=== PATIENT | male | born 1985 | race Caucasian/White ===

== ENCOUNTER 2019-05-16 00:09 | Emergency (ER) | payer OTHER, SELFPAY ==
[2019-05-16 00:10] VITALS: BP 112/67; PULSE 59; RESP 16; TEMP 36.6; O2SAT 98
--- NOTE | 2019-05-16 01:21 | ED.DCSUM_ITS ---
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 Denies: Visual changes - bilaterally, Diplopia Gastrointestinal: Denies: Nausea, Vomiting Skin: Denies: Rash, Wounds Neurological: Denies: Headache, Weakness, Parasthesia Physical Exam Visual Acuity: right: 20/30, left: 20/40 Visual Acuity: Corrected Eyelid: Normal inspection, Right eyelid everted, No foreign body Right Conjunctiva/Sclera: No foreign body, Diffuse focal injection - Mild Left Conjunctiva/Sclera: Normal inspection, No foreign body Right Cornea: Tetracaine instilled, Fluorescein dye uptake, Foreign body Extraocular Motion: Normal exam, No pain, No palsy Pupils: Normal accomodation, PERRL Vital Signs/Narrative: Vital Signs Temp Pulse Resp BP Pulse Ox 05/16/19 00:10 97.9 F 59 L 16 112/67 98 Inital Vital Signs reviewed: Yes General: Well nourished, Well developed - No acute distress Head: Normocephalic, Atraumatic Skin: Normal color, No rash, No Trauma Neurological: Alert, Oriented x3, Cranial nerves II-XII grossly intact, Normal Gait Psychological: Normal affect, Normal Mood Diagnostic/Tx/Re-eval - Treatment and Re-Evaluation Foreign body removal: Cotton tip swab, Eye migue, Irrigation Residual rust ring: Yes Removed with eye migue: No Irrigation: NS Tetracaine: right eye Antibiotic: right eye - Medical Decision Making Attempted for multiple attempts to remove foreign body from the patient's cornea. Despite multiple re-dosing of topical anesthesia, he was unable to keep his eyes still, and the procedure was limited by blepharospasm, as I continue to attempt holding his eye open throughout the procedure. It was extremely difficult. I was able to remove the foreign body, which appeared to be a speck of metal, however after I dislodged it with the eye bur, I was unable to retrieve it with the cotton swab, as the patient continued to move his eye. Therefore I rinsed his eye out, on reexamination there is no evidence of a foreign body but he does have residual rust ring. We attempted trying to grind it out, he was amenable to trying, however he was unable to keep still enough for me to feel comfortable enough to grind it out. I stained with fluorescein, there is dye uptake at the rust ring only and no other areas of dye uptake, negative Maritza. Anterior chamber is deep and quiet. Given erythromycin ointment and advised to follow-up with ophthalmology either tomorrow or on Saturday. Procedures Procedure(s): Right eye foreign body removal. See above. ED Disposition - Plan for ED Patient: Disposition: Home or Assisted Living Diagnosis: Foreign body of right cornea with residual material Instructions: CORNEAL FOREIGN BODY, Removed, w/ Rust Ring Referrals: Damien Kyle MD [STAFF PHYSICIAN] - As soon as possible Additional Instructions: Use thin ribbon topical antibiotic ointment to affected eye, 3 times daily
[2019-05-16] MEDS: Fluorescein 1 MG STRIP 1 STRIP RIGHT EYE (02:44)
[2019-05-16] MEDS: Tetracaine 0.5% Ophthalmic Bottle 2 DRP RIGHT EYE (02:44)
[2019-05-16 02:52] VITALS: BP 117/64; PULSE 59; RESP 18; O2SAT 97
[2019-05-16] MEDS: Erythromycin Base 1 OPTH.TUBE 1 APPLIC RIGHT EYE (02:54)
== END 2019-05-16 02:55 | disposition home or self-care (01) ==
PROVIDERS: Emergency Provider Emergency Medicine
DX: T15.01XA Foreign body in cornea, right eye, initial encounter (principal); S00.251A Superficial foreign body of right eyelid and periocular area, initial encounter; X58.XXXA Exposure to other specified factors, initial encounter; Y93.I9 Activity, other involving external motion; Y92.9 Unspecified place or not applicable; Y99.9 Unspecified external cause status
CPT/HCPCS: 99283; A4216

== ENCOUNTER 2020-05-05 22:58 | Emergency (ER) | payer OTHER, SELFPAY ==
[2020-05-05 22:59] VITALS: BP 120/68; PULSE 88; RESP 16; TEMP 36.2; O2SAT 99; BMI 23.2
--- NOTE | 2020-05-05 23:17 | EKG12_ITS ---
Test Reason : HYPERGLYCEMIA Blood Pressure : / mmHG Vent. Rate : 082 BPM Atrial Rate : 082 BPM P-R Int : 138 ms QRS Dur : 098 ms QT Int : 366 ms P-R-T Axes : 062 085 054 degrees QTc Int : 427 ms Normal sinus rhythm Normal ECG Confirmed by KAYLI REYNA, FREDY ([id number]), food expeditor AQUILINO SANTILLAN ([id number]) on 05/09/2020 8:18:06 AM Referred By: DUGLAS Confirmed By:FREDY MILAN MD
--- NOTE | 2020-05-05 23:17 | RAD_ITS ---
HISTORY: Hyperglycemia, cough, vomiting. EXAMINATION/TECHNIQUE: XR Chest 1 View: Portable COMPARISON: None FINDINGS: Normal heart size. No focal infiltrate. No vascular congestion or pleural effusion. No pneumothorax. RAD/Chest 1 View (Portable) IMPRESSION: No acute cardiopulmonary disease. at 0041 Reported and signed by: Arvind Pollard MD Electronically Signed: Arvind Pollard, at 0:40 EDT Tel , Service support ,
--- NOTE | 2020-05-05 23:21 | ED.RN ---
NO OLD EKGS IN MUSE
[2020-05-05 23:52] LABS: Bacteria 0 SEEN /hpf (None Seen); Mucous, Urine 0 SEEN /hpf (<or=2+); Red Blood Cells-Urine 0 SEEN /hpf (0-5); Squamous Epithelial Cells - UA 0 SEEN /hpf (0-5); White Blood Cells 0 SEEN /hpf (0-5)
[2020-05-05 23:54] LABS: Absolute Lymphocyte Count 0.99 X10^3/uL (0.83-4.51); Absolute Neutrophil Count 12.7 X10^3/uL (2.0-7.7); Basophil# 0.08 X10^3/uL; Basophil% 0.5 % (0-1); Eosinophils% 3.3 % (0-5); Hematocrit 46.1 % (40-54); Lymphocyte # 0.99 X10^3/ul (4.0); Lymphocyte % 6.5 % (19-41); Mean Corp Hgb Conc 32.5 g/dL (32-36); Mean Corpuscular Hgb 29.3 pg (27.0-32.0); Mean Platelet Vol. 9.1 fl (6.2-12.0); Monocyte# 0.79 X10^3/uL; Monocyte% 5.2 % (0-10); NRBC Flagged by Analyzer 0 % (0-5); Neutrophil # 12.74 X10^3/uL (2.7-7.7); Neutrophil % 84.2 % (47-70); Platelet Count 298 K/mm3 (150-450); RBC Distribution Width CV 12.5 % (11.6-14.6); RBC Distribution Width SD 40.9 fl (35.1-43.9); Red Blood Count 5.12 M/mm3 (4.6-6.2); White Blood Count 15.2 K/mm3 (4.4-11.0)
[2020-05-05 23:58] LABS: Glucose, Dipstick Normal (Normal); Ketone-Dipstick Negative (Negative); Leukocyte Esterase-Dipstick Negative /ul (Negative); Nitrite-Dipstick Negative (Negative); Occult Blood-Urine Negative /ul (Negative); Protein-Dipstick 15 mg/dl (Negative); Urine Bilirubin Dipstick Negative (Negative); Urine Urobilinogen Normal (Normal)
[2020-05-05] MEDS: 0.9% Normal Saline 1,000 ML 999 ML IV (23:58)
[2020-05-06 00:03] LABS: Color, Urine Yellow (Yellow); Urine Clarity Clear (Clear)
[2020-05-06 00:06] LABS: Bedside Glucose 178 mg/dL (70-110)
[2020-05-06 00:20] LABS: VBG BASE EXCESS 2 mmol/L (-1.0-3.5); VBG Bicarbonate 28 mmol/L (22-26); VBG Oxygen Content 30 mmol/L (23-33); VBG PO2 30 mmHg (25-40); VBG SO2 52 % (50-70); VBG pCO2 51.3 mmHg (41-51); VBG pH 7.35 (7.32-7.42)
[2020-05-06 00:25] LABS: Blood Gas Specimen Type VEN; SITE VENOUS; Time Given 4
--- NOTE | 2020-05-06 00:32 | ED.DCSUM_ITS ---
History of Present Illness Chief Complaint: Hyperglycemia Informant: Patient Narrative: 34-year-old male with type 1 diabetes presents with concern for upper respiratory symptoms as well as difficulty controlling his sugar. States over the past 2 days he has had upper nasal drainage as well as sore throat. States that over the course of today's sugar is been high and low. States he gave himself a dose of glucagon given a low blood sugar of approximately 60 before arrival. States that his is currently on quarantine for cough from the hospital. He denies any fever, chills, cough, nausea, vomiting, abdominal pain. Past Medical History - Allergies and Home Meds Allergies/Adverse Reactions: Allergies codeine Allergy (Verified 05/16/19 00:28) Rash acetaminophen [From Percocet] Adverse Reaction (Verified 05/05/20 23:01) Vomiting oxycodone [From Percocet] Adverse Reaction (Verified 05/05/20 23:01) Vomiting Sulfa (Sulfonamide Antibiotics) Adverse Reaction (Verified 05/05/20 23:01) Vomiting Primary Care Physician: Nilsa Hale MD [Primary Care Provider] - Prior records reviewed: Yes Past Medical History: - - DM 1 Surgical History: no surgical history Lives: Spouse/ Significant Other Smoking Status: Former smoker Alcohol: None Drugs: None Review of Systems General: Reports: Malaise. Denies: Chills, Fever, Sweats Eyes: Denies: Visual changes - bilaterally, Diplopia ENT: Reports: Sore throat. Denies: Rhinorrhea Cardiovascular: Denies: Chest pain, Palpitations Respiratory: Denies: Dyspnea, Cough, Dyspnea on exertion Gastrointestinal: Denies: Abdominal pain, Nausea, Vomiting, Diarrhea, Melena, Hematochezia Genitourinary: Denies: Dysuria, Hematuria, Frequency Musculoskeletal: Denies: Back pain, Extremity Pain Skin: Denies: Rash, Wounds Neurological: Denies: Headache, Weakness, Numbness Physical Exam Vital Signs/Narrative: Vital Signs Temp Pulse Resp BP Pulse Ox 05/05/20 22:59 97.1 F L 88 16 120/68 99 Inital Vital Signs reviewed: Yes General: Well nourished, Well developed, No Acute Distress Head: Normocephalic, Atraumatic Eyes: Perrl, EOMI ENT: Moist mucous membranes, No rhinorrhea Neck: Supple, Nontender Cardiovascular: Regular rate, Regular rhythm, No murmurs Respiratory: No distress, CTA bilaterally, Chest nontender Abdomen: Soft, Nontender, Nondistended, Normal bowel sounds Back: Nontender, Normal Inspection Extremities: Nontender, No edema Skin: Normal color, No rash Neurological: Alert, Oriented x3, Cranial nerves II-XII grossly intact, Normal Strength, Normal Sensation Psychological: Normal affect, Normal Mood Diagnostic/Tx/Re-eval Chest X-Ray - ED: 1 View, Read by ED Physician, Normal Clinical Impression(s) from Imaging Studies Chest X-Ray 05/05/20 23:17 IMPRESSION: No acute cardiopulmonary disease. at 0041 Reported and signed by: Arvind Pollard MD Electronically Signed: Arvind Pollard, at 0:40 EDT Tel , Service support , Laboratory Data 05/05/20 05/05/20 05/05/20 23:35 23:35 23:35 WBC 15.2 H RBC 5.12 Hgb 15.0 Hct 46.1 MCV 90.0 MCH 29.3 MCHC 32.5 RDW Std Deviation 40.9 RDW Coeff of Ashleigh 12.5 Plt Count 298 MPV 9.1 Immature Gran % (Auto) 0.300 Neut % (Auto) 84.2 H Lymph % (Auto) 6.5 L Dolores % (Auto) 5.2 Eos % (Auto) 3.3 Baso % (Auto) 0.5 Absolute Neuts (auto) 12.7 H Absolute Lymphs (auto) 0.99 Nucleated RBC % 0 Specimen Type Sample Site VBG pH VBG pO2 VBG O2 Sat (Calc) VBG O2 Content VBG Base Excess POC Mix VBG pCO2 Pt Tmp Blood Gas Notified Whom Blood Gas Notified Time Sodium 141 Potassium 3.4 L Chloride 104 Carbon Dioxide 32.0 Anion Gap 5 BUN 16 Creatinine 1.01 Estim Creat Clear Calc 114.18 Est GFR (MDRD) Af Amer 109 Est GFR (MDRD) Non-Af 90 BUN/Creatinine Ratio 15.8 Glucose 138 H Calcium 8.9 Phosphorus 3.9 Magnesium 2.0 Urine Color Urine Clarity Urine pH Ur Specific [place] Urine Protein Urine Glucose (UA) Urine Ketones Urine Occult Blood Urine Nitrite Urine Bilirubin Urine Urobilinogen Ur Leukocyte Esterase Urine RBC Urine WBC Ur Squamous Epith Cells Urine Bacteria Urine Mucus Acetone Level NEGATIVE POC Glucose 05/05/20 05/05/20 05/06/20 23:45 23:51 00:04 WBC RBC Hgb Hct MCV MCH MCHC RDW Std Deviation RDW Coeff of Ashleigh Plt Count MPV Immature Gran % (Auto) Neut % (Auto) Lymph % (Auto) Dolores % (Auto) Eos % (Auto) Baso % (Auto) Absolute Neuts (auto) Absolute Lymphs (auto) Nucleated RBC % Specimen Type LENO Sample Site VENOUS VBG pH 7.35 VBG pO2 30 VBG O2 Sat (Calc) 52 VBG O2 Content 30 VBG Base Excess 2 POC Mix VBG pCO2 Pt Tmp 51.3 H Blood Gas Notified Whom ED MD Blood Gas Notified Time 4 Sodium Potassium Chloride Carbon Dioxide Anion Gap BUN Creatinine Estim Creat Clear Calc Est GFR (MDRD) Af Amer Est GFR (MDRD) Non-Af BUN/Creatinine Ratio Glucose Calcium Phosphorus Magnesium Urine Color Yellow Urine Clarity Clear Urine pH 8.0 Ur Specific [place] 1.010 Urine Protein 15 H Urine Glucose (UA) Normal Urine Ketones Negative Urine Occult Blood Negative Urine Nitrite Negative Urine Bilirubin Negative Urine Urobilinogen Normal Ur Leukocyte Esterase Negative Urine RBC 0 SEEN Urine WBC 0 SEEN Ur Squamous Epith Cells 0 SEEN Urine Bacteria 0 SEEN Urine Mucus 0 SEEN Acetone Level POC Glucose 178 H - Rhythm Strip Rhythm Strip: Sinus Rhythm Rate: 82 Ectopy: None - EKG Initial EKG Interpretation: Sinus Rhythm - Sinus rhythm at 82 bpm. AK interval 138 ms. QTC of 427 ms. No evidence of ST elevation or depression at this time. - Medical Decision Making Patient appears well and nontoxic. Vital signs within normal limits. Fingerstick glucose of 178. BG shows no acidosis. Acetone negative. Glucose only mildly elevated on BMP. Patient does have a leukocytosis. Chest x-ray negative. Coronavirus pending. Patient likely has a viral illness and was advised to quarantine until the results of his testing could be returned. On reevaluation at 0126 patient's current blood sugar is 220 based upon his monitor. Patient is mentating well. Advised on quarantining at home. Asked to return for new or worsening symptoms. Patient agreeable and discharged home in stable condition. ED Disposition - Plan for ED Patient: Disposition: Home or Assisted Living Diagnosis: URI (upper respiratory infection), Uncontrolled blood glucose Instructions: ED URI Viral Referrals: Nilsa Hale MD [Primary Care Provider] -
[2020-05-06 01:18] LABS: Anion Gap 5 (5-15); BUN 16 mg/dL (7-18); BUN/Creat Ratio 15.8 RATIO (10-20); Calcium,Total 8.9 mg/dL (8.5-10.1); Chloride 104 mmol/L (98-107); Creatinine, Serum 1.01 mg/dL (0.70-1.30); EST Glomerular Filtration Rate 90 mL/min (>60); Est Glom Filt Rate - Afr Amer 109 mL/min (>60); Estimated Creatinine Clearance 114.18 ml/min; Glucose 138 mg/dL (74-106); Phosphorus 3.9 mg/dL (2.5-4.9); Potassium 3.4 mmol/L (3.5-5.1); Sodium Level 141 mmol/L (136-145)
[2020-05-06 02:03] VITALS: BP 121/71; PULSE 68; RESP 11; O2SAT 97
== END 2020-05-06 02:05 | disposition home or self-care (01) ==
PROVIDERS: Emergency Provider Emergency Medicine; PCP Family Medicine
DX: J06.9 Acute upper respiratory infection, unspecified (principal); Z79.4 Long term (current) use of insulin; Z87.891 Personal history of nicotine dependence; Z88.2 Allergy status to sulfonamides; Z88.5 Allergy status to narcotic agent
CPT/HCPCS: 71045; 80048; 81001; 82009; 82803; 82962; 83735; 84100; 85025; 87635; 93005; 96360; 99283; G2023; J7030; A4216; U0003

== ENCOUNTER → 2020-10-10 15:31 | Outpatient (CLI) | payer OTHER, SELFPAY ==
[2020-10-10 13:38] VITALS: BMI 23.1
== END ==
PROVIDERS: Physician Assistant; PCP Family Medicine; Referring Provider Physician Assistant Surgical; Visit Provider Physician Assistant Surgical
DX: R09.89 Other specified symptoms and signs involving the circulatory and respiratory systems (principal)
CPT/HCPCS: 87635; U0003

== ENCOUNTER 2020-10-12 20:05 | Emergency (ER) | payer OTHER, SELFPAY ==
[2020-10-10 13:38] VITALS: BMI 23.1
[2020-10-12 20:06] VITALS: BP 134/81; PULSE 74; RESP 16; TEMP 36.6; O2SAT 100; BMI 23.4
--- NOTE | 2020-10-12 20:26 | ED.VISSUMM ---
- ER Visit Summary Date of Service: 10/12/20 Chief Complaint: Shortness of breath History of Present Illness: The patient is a 35 M who presents with shortness of breath that has been getting worse over the past 4 days. Patient states it feels like it is hard to breathe. Patient states he was recently exposed to a coworker who was diagnosed with COVID-19. Patient states he had a rapid antigen COVID-19 test 5 days ago which was negative. Patient states he had a PCR test done 2 days ago and is still pending. Patient states his breathing is worse with any exertion. Patient states he is diabetic and his blood sugars have been getting more difficult to manage. Patient admits to a fever of 100.7 at home. Patient also admits to some bilateral ear pain and a sore throat. Patient also admits to some urinary frequency. Patient admits to general myalgias Physical Examination: Vital signs are stable. Patient is afebrile. Patient is in no acute distress. Oral mucosa is pink and moist. Neck is supple. Trachea is midline. There is no JVD noted. Heart was regular rate and rhythm. Lungs are clear and equal bilaterally. Abdomen is soft. Bowel sounds are normal. There is no tenderness. There is no rebound or guarding noted. Skin is warm dry. Cranial nerves II through XII are intact. There are no focal motor or sensory deficits noted. Extremities are intact. There is no calf tenderness or edema. Test Results: CBC and comprehensive metabolic profile were obtained and were essentially within normal limits. Glucose was 257. Urinalysis does not show any evidence of urinary tract infection. Serum ketones were negative. Portable 1 view chest x-ray was obtained. On my interpretation, lung mike are clear. There is normal cardiac silhouette. Bony thorax is normal. There is no acute process noted. Radiologist also interpreted the x-ray and agrees. Emergency Department Course and Treatment: Patient was advised of his findings. Patient was instructed to follow-up with his primary care physician in 2 to 3 days for results of his COVID-19 test. Patient was instructed to return if worse in any way. Patient understood and was agreeable with the plan. All questions were answered. Disposition: Discharge home Impression: Viral upper respiratory infection This note was generated with [employer] dictation software. It may contain incorrect words, spelling, and punctuation that were not noted in review of the chart prior to signing ED Disposition - Plan for ED Patient: Disposition: Home or Assisted Living Diagnosis: Viral upper respiratory infection Instructions: Pending Outpatient COVID Test, ED URI, Viral, No Abx (Adult) Referrals: Nilsa Hale MD [Primary Care Provider] - 2 Days
--- NOTE | 2020-10-12 20:27 | RAD_ITS ---
STUDY: X-RAY CHEST REASON FOR EXAM: Male, 35 years old. SOB, DIZZINESS TECHNIQUE: Single AP portable view of the chest. COMPARISON: May 05, 2020 FINDINGS: The lungs are clear and expanded. There is no demonstrated pleural abnormality. Normal size heart. Normal mediastinum and timbo. Normal visualized pulmonary arteries. Normal visualized aortic arch and descending thoracic aorta. Normal visualized thoracic spine. Normal visualized ribs, clavicles, and shoulders. There is no demonstrated abnormality of the visualized soft tissue structures of the upper abdomen. RAD/Chest 1 View (Portable) IMPRESSION: Normal x-ray examination of the chest. Electronically Signed: Adam Isaac MD at 21:35 EST , Service support ,
[2020-10-12 21:00] VITALS: BP 115/74; PULSE 67; RESP 18; TEMP 36.6; O2SAT 98
[2020-10-12 21:12] VITALS: O2SAT 98
[2020-10-12 21:20] LABS: Bedside Glucose 271 mg/dL (70-110)
[2020-10-12 21:26] LABS: Absolute Lymphocyte Count 1.77 X10^3/uL (0.83-4.51); Absolute Neutrophil Count 3.6 X10^3/uL (2.0-7.7); Basophil# 0.04 X10^3/uL; Basophil% 0.6 % (0-1); Hematocrit 40.9 % (40-54); Hemoglobin 13.4 g/dL (13.0-16.5); Lymphocyte # 1.77 X10^3/ul (4.0); Lymphocyte % 28.4 % (19-41); Mean Corp Hgb Conc 32.8 g/dL (32-36); Mean Corpuscular Hgb 29.1 pg (27.0-32.0); Mean Corpuscular Volume 88.7 fL (80-94); Mean Platelet Vol. 9.5 fl (6.2-12.0); Monocyte% 4.8 % (0-10); NRBC Flagged by Analyzer 0 % (0-5); Neutrophil # 3.61 X10^3/uL (2.7-7.7); Platelet Count 257 K/mm3 (150-450); RBC Distribution Width CV 12.5 % (11.6-14.6); RBC Distribution Width SD 40.9 fl (35.1-43.9); Red Blood Count 4.61 M/mm3 (4.6-6.2); White Blood Count 6.2 K/mm3 (4.4-11.0)
[2020-10-12 21:42] LABS: ALB/GLOB Ratio 1.2 RATIO (0.9-2.4); AST(SGOT) 12 U/L (15-37); Alanine Aminotransfer ALT/SGPT 25 U/L (16-61); Albumin, Serum 3.7 g/dL (3.2-5.0); Alkaline Phosphatase 105 U/L (45-117); Anion Gap 6 (5-15); BUN 12 mg/dL (7-18); BUN/Creat Ratio 13.5 RATIO (10-20); Calcium,Total 8.1 mg/dL (8.5-10.1); Chloride 108 mmol/L (98-107); Creatinine, Serum 0.89 mg/dL (0.70-1.30); EST Glomerular Filtration Rate 104 mL/min (>60); Est Glom Filt Rate - Afr Amer 126 mL/min (>60); Estimated Creatinine Clearance 128.36 ml/min; Glucose 257 mg/dL (74-106); Potassium 3.7 mmol/L (3.5-5.1); Protein, Total 6.7 g/dL (6.4-8.2); Sodium Level 143 mmol/L (136-145)
[2020-10-12 21:48] LABS: Bacteria 0 SEEN /hpf (None Seen); Mucous, Urine 0 SEEN /hpf (<or=2+); Red Blood Cells-Urine 0 SEEN /hpf (0-5); Squamous Epithelial Cells - UA 0 SEEN /hpf (0-5); White Blood Cells 0 SEEN /hpf (0-5)
[2020-10-12 21:58] LABS: Color, Urine Yellow (Yellow); Glucose, Dipstick 1000 mg/dl (Normal); Ketone-Dipstick Negative (Negative); Leukocyte Esterase-Dipstick Negative /ul (Negative); Nitrite-Dipstick Negative (Negative); Occult Blood-Urine Negative /ul (Negative); Protein-Dipstick Negative (Negative); Specific Gravity, Urine 1.015 (1.002-1.030); Urine Bilirubin Dipstick Negative (Negative); Urine Clarity Clear (Clear); Urine Urobilinogen Normal (Normal); Urine pH 6.5 (5.0 - 8.0)
[2020-10-12 23:00] VITALS: BP 111/91; PULSE 53; RESP 18; O2SAT 100
[2020-10-12 23:02] VITALS: BP 111/91; PULSE 59; RESP 18; O2SAT 98
== END 2020-10-12 23:02 | disposition home or self-care (01) ==
PROVIDERS: Emergency Provider Emergency Medicine; PCP Family Medicine
DX: J06.9 Acute upper respiratory infection, unspecified (principal); R35.0 Frequency of micturition; E11.9 Type 2 diabetes mellitus without complications; Z86.19 Personal history of other infectious and parasitic diseases
CPT/HCPCS: 71045; 80053; 81001; 82009; 82962; 85025; 99284

== ENCOUNTER 2021-01-03 10:01 | Outpatient (RCR) | payer OTHER, SELFPAY ==
[2021-01-03] MEDS: COVID-19 VACC, MRNA(PFIZER)/PF 30 MCG/0.3 ML SYRINGE IM (18:30)
[2021-01-24] MEDS: COVID-19 VACC, MRNA(PFIZER)/PF 30 MCG/0.3 ML SYRINGE IM (18:43)
== END 2021-04-04 23:59 ==
LOC: IMMUN 10:01
PROVIDERS: PCP Family Medicine; Visit Provider Family Medicine
DX: Z23 Encounter for immunization (principal)
CPT/HCPCS: 0001A; 0002A; 91300

== ENCOUNTER → 2021-02-22 09:31 | Outpatient (CLI) | payer OTHER, SELFPAY ==
[2021-02-22 08:40] VITALS: BMI 23.4
--- NOTE | 2021-02-22 09:32 | RAD_ITS ---
STUDY: X-RAY - LEFT KNEE REASON FOR EXAM: Left knee pain for 4 days, no specific injury. TECHNIQUE: 4 view(s) of the knee. COMPARISON: None. FINDINGS: Normal visualized distal femur. Normal visualized proximal tibia and fibula. Normal proximal tibiofibular articulation. Normal medial femorotibial compartment. Normal lateral femorotibial compartment. Normal patellofemoral articulation. The soft tissue structures are unremarkable. RAD/Knee 4 or More Views IMPRESSION: Normal x-ray examination of the left knee. Electronically Signed: Hany Hernandez MD at 10:04 EDT Tel , Service support ,
== END ==
PROVIDERS: PCP Family Medicine
DX: M25.562 Pain in left knee (principal)
CPT/HCPCS: 73564

== ENCOUNTER → 2021-03-02 08:09 | Outpatient (CLI) | payer OTHER, SELFPAY ==
[2021-02-22 08:40] VITALS: BMI 23.4
--- NOTE | 2021-03-02 07:45 | RAD_ITS ---
STUDY: X-RAY - ORBITS REASON FOR EXAM: Male, 35 years old. FOREIGN BODY TECHNIQUE: 2 view(s) of the orbits were obtained. COMPARISON: None. FINDINGS: Normal bilateral orbits without a metallic orbital foreign body. Normal visualized facial bones. Normal paranasal sinuses. The soft tissue structures are unremarkable. RAD/Orbits for Foreign Body IMPRESSION: No demonstrated metallic orbital foreign body. The patient is cleared for an MRI examination. Electronically Signed: Virgil Lee MD at 9:07 EDT , Service support ,
--- NOTE | 2021-03-02 08:10 | MRI_ITS ---
STUDY: MRI LEFT KNEE REASON FOR EXAM: Male, 35 years old. Injury. Buna a pop. Pain. TECHNIQUE: Standardized fat and water weighted pulse sequences were obtained in all 3 orthogonal planes. COMPARISON: X-ray dated 02/22/2021. FINDINGS: Patellofemoral articular cartilage preserved. Medial compartment grade 2/3 cartilage loss. Lateral compartment articular cartilage preserved. No acute fracture, dislocation or cortical destruction. Reactive bone marrow edema/contusion at the medial compartment. Displaced medial meniscal tear with fragment at the medial gutter (coronal image 17 series 6). Medial meniscal tear extends to the inferior articular surface (sagittal image 7 series 4). Lateral meniscus intact. Low-grade anterior cruciate ligament sprain without tear (sagittal image 13 series 4). Normal posterior cruciate ligament. Trace joint effusion. No popliteal cyst. No significant swelling. Normal medial collateral ligamentous complex (MCL). Normal distal semimembranosus, gracilis and semitendinosus tendons. Normal proximal tibiofibular articulation. Normal lateral collateral (fibular) ligament. Normal popliteus tendon. Normal biceps femoris tendon. Normal medial and lateral patellar retinaculum. Normal quadriceps tendon. Normal patellar tendon. Normal Hoffa''s fat pad. MRI/Lower Ext Joint Only (Routine) IMPRESSION: Medial meniscus displaced tear with medial gutter fragment Low-grade ACL sprain without tear Medial compartment mild/moderate cartilage loss Trace joint effusion Electronically Signed: Lobo Moses DO at 10:35 EDT Tel , Service support ,
== END ==
PROVIDERS: PCP Family Medicine; Referring Provider Orthopaedic Surgery; Visit Provider Orthopaedic Surgery
DX: M23.92 Unspecified internal derangement of left knee (principal); S83.249A Other tear of medial meniscus, current injury, unspecified knee, initial encounter; S89.92XA Unspecified injury of left lower leg, initial encounter
CPT/HCPCS: 70030; 73721

== ENCOUNTER 2021-03-14 05:57 | Day surgery (SDC) | payer OTHER, SELFPAY ==
[2021-02-22 08:40] VITALS: BMI 23.4
[2021-03-14] VITALS (9 sets, daily range): BP systolic 88–115; BP diastolic 60–73; PULSE 45–69; RESP 16; TEMP 36.1–37.3; O2SAT 96–100; BMI 21.2
[2021-03-14] MEDS: Lactated Ringers 1,000 ML 100 ML IV (06:48)
[2021-03-14 07:00] LABS: Bedside Glucose 229 mg/dL (70-110)
--- NOTE | 2021-03-14 07:11 | HP.PCM_ITS ---
History and Physical Date of Admission: 03/14/21 [facility] MRI f/u Details: Parts of this documentation were recorded by a scribe, this documenta tion accurately reflects the service provided and the decisions made by me, Dr. Raul Cox, DO 03/06/21 1038Izabel SANCHEZ is a 35 year old M here today for a followup on his left knee. He continues to have knee pain and rates it at a 8/10. Patient has pain over his medial knee. He has occasional swelling. He has not been wearing his brace due to swelling. Patient has clicking at times. Patient has been non- weightbearing at all times. Patient had an MRI which is here for review. Patient became agitated that we had to review his medical record and medications with him today. Patient complains of numbness and tingling into his bilateral hand. Right greater than left.He is unsure what fingers go numb. Patient complains of cramping while working. He has increased symptoms at night. He denies any cervical spine injury or pain. Patient has stiffness at times. Denies any treatment or bracing, admits to boxing as a teenager with potential injuries during that time. He also complains of cramping and inability to extend the fingers at times secondary to his work. [facility] Reports arthralgias, Reports joint swelling, Denies numbness and Denies tingling Skin/Breast Reports system reviewed and no additional complaints, except as documented Neuro Yes system reviewed and no additional complaints, except as documented, No numbness and No tingling Ortho Exam Right Wrist/Hand Skin/Wound: Yes CDI, No Swelling, No Ecchymosis and Yes capillary refill normal Right Wrist: Yes Tinel's and Phalen's; No Snuffbox tenderness, Thenar Atrophy or Hypothenar Atrophy WRIST: positive tinels at elbow and wrist. increased symptoms with elbow hyperflexion and direct compression. Left Wrist/Hand Skin/Wound: Yes CDI, No Swelling, No Ecchymosis and No erythema Left Wrist: Yes Tinel's and Yes Phalen's WRIST: positive tinels at elbow and wrist. increased symptoms with elbow flexion. Left Knee Skin/Wound: Yes CDI, No erythema and No swelling Knee ROM: Yes ROM-Extension -20 to 0 (-20) and Yes ROM-Flexion 0-140 (115) Examination: Yes med jt line tenderness Supplemental Info 03/02/2021 MRI left knee: Medial meniscus displaced tear of the medial gutter low- grade sprain of ACL without tear mild to moderate cartilage thinning of the medial side of the knee small joint effusion Coding Level of Care Code Off vis,est,level 3 Diagnoses Acute medial meniscus tear of left knee S83.242A Carpal tunnel syndrome, bilateral G56.03 Chondromalacia, left knee M94.262 Assessment and Plan Assessment and Plan (1) Acute medial meniscus tear of left knee: (2) Carpal tunnel syndrome, bilateral: (3) Chondromalacia, left knee: Status: Acute Plan - Dr. Raul Cox, DO: Spoke with him about tearing his medial meniscus right knee in addition to chondral wear medial compartment. Recommended the patient have surgery for meniscus repair vs meniscectomy. Explained he has cartilage loss over his medial compartment. Patient is at higher risk of arthritis due to his injury. Patient should continue to be non-weightbearing until surgery. If he has a meniscus repair, he will continue to be non-weightbearing for 6 weeks post op then restrictions for another 6 weeks. He should not take any ibuprofen or naproxen prior to surgery. He may take tylenol. Patient should continue to work on range of motion. Reviewed the pre-operative plans with the patient. Risks and benefits of the procedure were fully explained, including but not limited to infection, neurovascular injury, continued pain, arthritis, stiffness, need for further surgery, re-injury, DVT, PE, general risks of anesthesia, and loss of limb or life. The patient understands all the risks and does wish to proceed with written consent. Patient should have an EMG of his bilateral UE to evaluate his numbness and tingling. Follow up for 2 week post op or sooner if pain, swelling, numbness or associated symptoms, or concerns develop. All questions answered. Patient in agreement of plan. He will need to stop NSAIDs prior to surgery I have re-examined the patient. There are no clinical changes since date of exam
[2021-03-14] MEDS: Cefazolin 2 GM in 0.9% Normal Saline 100 ML IV (07:24)
[2021-03-14] MEDS: Epinephrine (1 mg/ml) 1 MG/ML VIAL (07:49)
[2021-03-14] MEDS: Bupivacaine 0.25%-Epi/Pf 1:200,000 10 ML (07:49)
[2021-03-14] MEDS: Bupivacaine Mpf 0.5% 30 ML VIAL (08:07)
[2021-03-14] MEDS: MethylPREDNISolone Acetate 40 MG/ML Vial IM (08:08)
[2021-03-14 08:30] LABS: Bedside Glucose 128 mg/dL (70-110)
--- NOTE | 2021-03-14 08:31 | DCINST_ITS ---
Discharge Instructions Follow Up Care Please Follow Up With: Raul Cox DO When: 2 weeks Test Results: Test results from this visit will be discussed in further detail at your follow-up appointment, if applicable. Discharge Plan Admission Primary Reason for Your Visit: Left knee arthroscopy Attending Provider: Raul Cox Primary Care Provider: Nilsa Hale Instructions Additional Instructions / Restrictions: Ice and elevate next 72 hours .keep dressing on clean and dry for 48 hours then may remove begin showering daily but do not submerge in tub or pool. After shower may apply Band-Aids . Encourage knee range of motion weightbearing as tolerated, use crutches until confident in knee then may discontinue. No stre nuous activity. When not ambulating keep iced and elevated next 72 hours. Do not mix pain medication with recreational drugs or alcohol only take as prescribed can be addictive and abusive, call with any questions or concerns. Discharge Orders/Prescriptions Prescriptions: New hydrocodone-acetaminophen 5-325 mg tablet 1 - 2 tab PO Q4H 5 Days Qty: 25 RF: 0 No Action (DME) insulin pump controller 1 EACH misc 1 ea MC DAILY RF: 0 Humalog U-100 Insulin 100 unit/mL cartridge 40 unit SC DAILY RF: 0 multivitamin 1 EACH tablet 1 ea PO DAILY RF: 0 omeprazole 40 MG capsule,delayed release(DR/EC) 40 mg PO DAILY RF: 0 dextroamphetamine-amphetamine 20 MG tablet 20 mg PO BID RF: 0 naproxen 500 MG tablet 500 mg PO DAILY RF: 0 cholecalciferol (vitamin D3) 2,000 UNIT capsule 2,000 unit PO DAILY RF: 0 alprazolam [Xanax] 0.25 mg Tablet 0.25 mg PO BID PRN (Reason: Anxiety) RF: 0 Referrals / Follow Up: Nilsa Hale MD [Primary Care Provider] - Disposition Discharge Orders: Discharge Patient (Routine); Ordered 03/14/21 Ordered By: Dr. Raul Cox
--- NOTE | 2021-03-14 08:32 | OP.PCM_ITS ---
Report of Operation Description of Surgical Findings:: Preop diagnosis: Left knee medial meniscus tear body Postoperative diagnosis: Left knee radial tear medial meniscus with horizontal component and posterior horn, grade II chondromalacia medial compartment Procedure: Left knee arthroscopic partial medial meniscectomy Anesthesia: General Estimated blood loss: 5 mL Tourniquet time: 25 minutes 300 mmHg Complications: none Indication for procedure: 35-year-old male patient who had an injury stepping off of a back of a truck immediately felt pop mechanical symptoms MRI demonstrated medial meniscus tear, we discussed operative versus nonoperative intervention extensively including possibility of meniscectomy versus meniscal repair the patient did wish to proceed with an elective arthroscopic surgery to attempt to alleviate the symptoms. Risk benefits and alternatives of the procedure were reviewed including risk of bleeding infection nerve artery tissue damage need for further surgery continued pain and expected postoperative course. Procedure: The patient was met in the preoperative holding area. The operative extremity was identified by both patient and physician and family and marked. Patient was brought back to the operating room on a wheeled cart and transferred to the operating table in the supine position. Anesthesia was started. A well- padded tourniquet was placed on the operative extremity. A lower extremity leg rivero was secured to the operative extremity. The contralateral extremity was well-padded and the end of the bed was flexed to 90 degrees. The patient was prepped and draped in the usual sterile fashion. A timeout was called to ensure the proper patient, procedure, and extremity were being contemplated. 0.5% Marcaine with epinephrine was injected into the planned incisional areas under the skin only. An Esmarch was used to exsanguinate the extremity and the tourniquet was inflated. An 11 blade scalpel was used to make a stab incision in the anterior lateral portal. The arthroscope was inserted into the intercondylar notch and inflow and outflow tubes were attached. Arthroscopic visualization began. The medial compartment was entered. An 18-gauge spinal needle was used to establish the placement for anterior medial portal. An 11 blade scalpel was used to make a stab incision. Blunt probe was inserted followed by a meniscal probe. There was a flipped radial tear of the body of the medial meniscus into the gutter with use of a probe it was brought into the joint with use of arthroscopic biting instruments shaver and ArthroCare wand partial medial meniscectomy was performed there was also a horizontal component of the tear in the posterior horn the use of a shaver was used to debride this back to a stable rim the ACL was found to be intact. The lateral compartment was entered free of meniscal or cartilage pathology The arthroscope was switched to the medial portal to complete the procedure. The medial and lateral gutters were inspected and were free of loose bodies. The patellofemoral joint was inspected and was free of cartilage pathology. There was good patellar tracking. The knee was thoroughly irrigated and drained. An intra-articular injection with 5 cc 0.5% Marcaine plain and 40 mg of Depo-Medrol was injected intra-articularly. The arthroscope was removed the portals were closed with 3-0 nylon arthroscopic stitches. Followed by Xeroform 4 x 4's ABDs web roll and an Lino wrap. The tourniquet was let down and the drapes were removed. All counts were correct. The patient was brought back to the PACU in stable condition.
[2021-03-14 09:36] LABS: Bedside Glucose 140 mg/dL (70-110)
[2021-03-14] MEDS: HYDROcodone Bitartrate/Apap 5/325 Tablet PO (10:39)
== END 2021-03-14 11:28 ==
LOC: SDC 05:58 → AC 05:59
PROVIDERS: PCP Family Medicine; Referring Provider Orthopaedic Surgery; Visit Provider Orthopaedic Surgery
PROC: (CPT 29870; principal; 2021-03-14 07:10)
DX: S83.241A Other tear of medial meniscus, current injury, right knee, initial encounter (principal); S83.242A Other tear of medial meniscus, current injury, left knee, initial encounter; M94.262 Chondromalacia, left knee; G56.03 Carpal tunnel syndrome, bilateral upper limbs; E11.9 Type 2 diabetes mellitus without complications; K21.9 Gastro-esophageal reflux disease without esophagitis; F32.9 Major depressive disorder, single episode, unspecified; F41.9 Anxiety disorder, unspecified; F90.9 Attention-deficit hyperactivity disorder, unspecified type; G89.29 Other chronic pain; M54.2 Cervicalgia; M54.9 Dorsalgia, unspecified; Y30.XXXA Falling, jumping or pushed from a high place, undetermined intent, initial encounter; Y92.9 Unspecified place or not applicable; Y99.9 Unspecified external cause status
CPT/HCPCS: 29881; 29888; 82962; J7120; J2405

== ENCOUNTER → 2021-05-10 07:36 | Outpatient (CLI) | payer OTHER, SELFPAY ==
[2021-02-22 08:40] VITALS: BMI 23.4
[2021-03-29 08:28] VITALS: BMI 21.2
[2021-05-10 09:55] LABS: Absolute Lymphocyte Count 1.35 X10^3/uL (0.83-4.51); Absolute Neutrophil Count 4.6 X10^3/uL (2.0-7.7); Basophil# 0.05 X10^3/uL; Basophil% 0.7 % (0-1); Eosinophil# 0.37 X10^3/uL; Eosinophils% 5.5 % (0-5); Hematocrit 45.3 % (40-54); Hemoglobin 15.1 g/dL (13.0-16.5); Lymphocyte # 1.35 X10^3/ul (0.83-4.51); Lymphocyte % 19.9 % (19-41); Mean Corp Hgb Conc 33.3 g/dL (32-36); Mean Corpuscular Hgb 29.3 pg (27.0-32.0); Mean Platelet Vol. 9.5 fl (6.2-12.0); Monocyte% 5.9 % (0-10); NRBC Flagged by Analyzer 0 % (0-5); Neutrophil # 4.59 X10^3/uL (2.7-7.7); Neutrophil % 67.9 % (47-70); Platelet Count 279 K/mm3 (150-450); RBC Distribution Width CV 12.4 % (11.6-14.6); RBC Distribution Width SD 40.3 fl (35.1-43.9); Red Blood Count 5.15 M/mm3 (4.6-6.2); White Blood Count 6.8 K/mm3 (4.4-11.0)
[2021-05-10 10:21] LABS: ALB/GLOB Ratio 1.3 RATIO (0.9-2.4); AST(SGOT) 14 U/L (15-37); Alanine Aminotransfer ALT/SGPT 26 U/L (16-61); Albumin, Serum 4.3 g/dL (3.2-5.0); Alkaline Phosphatase 97 U/L (45-117); Anion Gap 3 (5-15); BUN 16 mg/dL (7-18); Calcium,Total 8.9 mg/dL (8.5-10.1); Chloride 103 mmol/L (98-107); Cholesterol 129 mg/dL (200); Creatinine, Serum 0.89 mg/dL (0.70-1.30); EST Glomerular Filtration Rate 104 mL/min (>60); Est Glom Filt Rate - Afr Amer 125 mL/min (>60); Globulin 3.4 g/dL (2.2-4.2); Glucose 194 mg/dL (74-106); High Density Lipoprotein 56 mg/dL; Potassium 3.9 mmol/L (3.5-5.1); Protein, Total 7.7 g/dL (6.4-8.2); Sodium Level 138 mmol/L (136-145); Triglycerides 39 mg/dL; Very Low Density Lipoprotein 8 mg/dL (5-40)
[2021-05-10 10:22] LABS: Vitamin D,25 Hydroxy 40.6 ng/mL
[2021-05-10 10:50] LABS: Hemoglobin A1c 8.6 % (3.8-5.6)
--- NOTE | 2021-05-10 15:58 | NEURO ---
NCS and/or EMG Patient Report Ordering Doctor: Raul Cox DATE OF SERVICE: 05/10/21 Hiram presents for electrodiagnostic testing of the upper limbs. He reports numbness tingling and weakness in both hands. Electrodiagnostic findings: Right median motor nerve demonstrates prolonged distal latency with normal amplitude and reduced conduction velocity. Left median motor nerve demonstrates normal distal latency and amplitude with reduced conduction velocity. Prolonged median sensory latency at the wrist bilaterally. On needle EMG, all muscles tested in the upper limbs showed no evidence of denervation with normal motor unit action potentials. Electrodiagnostic impression: This is an abnormal study in the upper limbs. 1. Electrodiagnostic findings demonstrate bilateral median mononeuropathy. This consistent with a mild to moderate bilateral carpal tunnel syndrome.
== END ==
PROVIDERS: PCP Family Medicine; Referring Provider Orthopaedic Surgery; Visit Provider Orthopaedic Surgery
DX: Z00.00 Encounter for general adult medical examination without abnormal findings (principal); E10.65 Type 1 diabetes mellitus with hyperglycemia; E55.9 Vitamin D deficiency, unspecified; G56.03 Carpal tunnel syndrome, bilateral upper limbs
CPT/HCPCS: 36415; 80053; 80061; 82306; 83036; 85025; 95886; 95912

== ENCOUNTER 2021-09-17 18:41 | Emergency (ER) | payer OTHER, SELFPAY ==
[2021-09-17 18:42] VITALS: BP 141/91; PULSE 84; RESP 16; TEMP 36.4; O2SAT 100; BMI 22.4
[2021-09-17] MEDS: Lidocaine 1% (20 ml mdv) 20 ML Vial INFILT (20:33)
--- NOTE | 2021-09-17 21:12 | EDS_ITS ---
HPI History of Present Illness HPI Narrative: Patient presents with a laceration to her left middle finger that occurred today. Patient states he was working on a car engine when he cut it on a sharp piece of metal. Patient states his last tetanus was less than 5 years ago. Patient states the bleeding has been persistent. Patient admits to some tingling in the tip of his finger. Patient denies any weakness. Patient states his pain is worse with any movement. Patient denies any other injuries. Chief Complaint: Laceration Informant: patient Onset/Context/Timing Onset: Today Context: Sudden Onset Timing: Continuous Quality of Pain: Sharp Location: Left middle finger Worsened by: Movement Relieved by: Nothing Associated Symptoms Associated Symptoms: Positive for Parasthesia; Negative for Weakness and Loss of Funtion Narrative Tetanus Immunization: <5 years PFSH PFS Medical History ADHD Anxiety Chronic neck and back pain Depression Diabetes Diarrhea Difficulty balancing when standing Fatigue GERD (gastroesophageal reflux disease) Knee pain Wears contact lenses Home Medications insulin pump controller 05/06/20 [History Last Taken Unknown] insulin lispro 100 unit/mL subcutaneous cartridge 40 unit SC DAILY 10/10/20 [History Last Taken Unknown] cholecalciferol (vitamin D3) 2,000 unit PO DAILY 10/12/20 [History Last Taken Unknown] dextroamphetamine-amphetamine [Adderall] 20 mg PO BID 10/12/20 [History Last Taken Unknown] multivitamin 1 ea PO DAILY 10/12/20 [History Last Taken Unknown] naproxen 500 mg PO DAILY 10/12/20 [History Last Taken 03/06/21] omeprazole 40 mg PO DAILY 10/12/20 [History Last Taken 03/14/21 05:07] alprazolam [Xanax] 0.25 mg PO BID PRN 03/14/21 [History Last Taken 03/14/21 05:06] cephalexin 500 mg PO Q6 #40 capsule 09/17/21 [Rx Last Taken Unknown] Allergy/AdvReac Type Severity Reaction Status Date / Time codeine Allergy Rash Verified 09/17/21 18:44 oxycodone [From Percocet] AdvReac Vomiting Verified 09/17/21 18:44 Sulfa (Sulfonamide AdvReac Vomiting Verified 09/17/21 18:44 Antibiotics) Family History Other Asthma Diabetes Hypertension Social History Smoking Status: Former smoker alcohol intake: current alcohol intake frequency: a few times a month Alcohol type: beer ROS ROS ED Constitutional Constitutional ED: Denies chills or fever(s) Eyes Eyes: Denies blurry vision or change in vision ENT ENT ED: Denies rhinorrhea or sore throat Cardiovascular Cardiovascular: Denies chest pain or palpitations Respiratory/Chest Respiratory/Chest: Denies cough or dyspnea Gastrointestinal Gastrointestinal: Denies nausea or vomiting Genitourinary Genitourinary ED: Denies dysuria or hematuria Musculoskeletal Musculoskeletal: Denies back pain or neck pain Integumentary Denies abscess or rash Neurologic Neurologic: Denies headache(s) or weakness Allergic/Immunologic Allergic/Immunologic ED: Denies mouth swelling or urticaria EXAM Physical Exam Const Vital Signs: 09/17/21 18:42 Temperature 97.5 F L Temperature Source Temporal Pulse Rate 84 Respiratory Rate 16 Blood Pressure 141/91 H Blood Pressure Mean 107 Pulse Ox 100 Oxygen Delivery Method Room Air Positive well nourished and well developed General Appearance ED: well developed HEENT Reports moist mucous membranes Neck full ROM Extremity Extremity Narrative: There is a 2.5 cm full-thickness linear laceration over the palmar aspect of the distal phalanx of the left long finger. There is moderate gapping of the wound margins. There are no foreign bodies noted. There is moderate bleeding. Sensation was intact to light touch in all digits. Capillary refill was less than 2 seconds in all digits. Strength is 5/5 in flexion of the DIP, PIP, and MP joints. Neuro oriented x3, CN's II-XII intact bilaterally, moves all extremities, no focal motor deficits and no sensory deficits noted Sensorium / Orientation: alert Psych mental status grossly normal MDM MDM MDM Narrative Medical decision making narrative: The wound was cleaned and irrigated with copious amounts of normal saline. The wound was anesthetized with 1% plain lidocaine via digital block. The wound was closed with 5 simple interrupted #4- 0 nylon sutures under sterile technique. Patient tolerated the procedure well. Bacitracin dressing was applied. Patient was given a dose of Keflex here. Patient was given a prescription for Keflex. Patient was instructed to follow- up with his primary care physician in 8 days for wound recheck and suture removal. Patient and family understood and were agreeable with the plan. All questions were answered. Procedures Lacerations Left middle finger: Length: 2.5 cm Depth: Skin Shape: Linear Prep: Sterile Conditions and Chlorhexadine Laceration repair: Digital block, Irrigated and Lidocaine Irrigated (ml): 60 Number of Sutures/[place]: 5 Suture Information: Ethilon and 4-0 Discharge Plan Triage Chief Complaint: Laceration ED Provider: Lobo Pope Dx/Rx/DC Orders Clinical Impression: Laceration of left middle finger w/o foreign body w/o damage to nail Instructions: ED Laceration, Hand: All Closures Prescriptions: New cephalexin [cephalexin] 500 MG capsule 500 mg PO Q6 Qty: 40 RF: 0 No Action (DME) insulin pump controller 1 EACH misc 1 ea MC DAILY RF: 0 Humalog U-100 Insulin 100 unit/mL cartridge 40 unit SC DAILY RF: 0 multivitamin 1 EACH tablet 1 ea PO DAILY RF: 0 omeprazole 40 MG capsule,delayed release(DR/EC) 40 mg PO DAILY RF: 0 dextroamphetamine-amphetamine [Adderall] 20 MG tablet 20 mg PO BID RF: 0 naproxen 500 MG tablet 500 mg PO DAILY RF: 0 cholecalciferol (vitamin D3) 2,000 UNIT capsule 2,000 unit PO DAILY RF: 0 alprazolam [Xanax] 0.25 mg Tablet 0.25 mg PO BID PRN (Reason: Anxiety) RF: 0 Stand Alone Forms: ED Work / School Excuse Primary Care Provider: Nilsa Hale Referrals: Nilsa Hale MD [Primary Care Provider] - 7 Days for suture removal Disposition Disposition: Home, Self Care Discharge Date/Time: 09/17/21 21:34
[2021-09-17] MEDS: Cephalexin 500 MG Capsule PO (21:23)
== END 2021-09-17 21:34 | disposition home or self-care (01) ==
PROVIDERS: Emergency Provider Emergency Medicine; PCP Family Medicine
DX: S61.213A Laceration without foreign body of left middle finger without damage to nail, initial encounter (principal); W26.8XXA Contact with other sharp object(s), not elsewhere classified, initial encounter; F90.9 Attention-deficit hyperactivity disorder, unspecified type; F41.9 Anxiety disorder, unspecified; G89.29 Other chronic pain; M54.2 Cervicalgia; M54.50 Low back pain, unspecified; F32.9 Major depressive disorder, single episode, unspecified; E11.9 Type 2 diabetes mellitus without complications; Z96.41 Presence of insulin pump (external) (internal); Z79.4 Long term (current) use of insulin; Z79.1 Long term (current) use of non-steroidal anti-inflammatories (NSAID); Z87.891 Personal history of nicotine dependence; Z79.899 Other long term (current) drug therapy
CPT/HCPCS: 12001; 99284

== ENCOUNTER → 2022-05-24 | Outpatient (CLI) | payer OTHER, SELFPAY ==
[2022-05-24 15:45] LABS: Bacteria 0 SEEN /hpf (None Seen); Mucous, Urine 0 SEEN /hpf (<or=2+); Red Blood Cells-Urine 0 SEEN /hpf (0-5); Squamous Epithelial Cells - UA 0 SEEN /hpf (0-5); White Blood Cells 0 SEEN /hpf (0-5)
[2022-05-24 15:51] LABS: Glucose, Dipstick Normal (Normal); Ketone-Dipstick Negative (Negative); Leukocyte Esterase-Dipstick Negative /ul (Negative); Nitrite-Dipstick Negative (Negative); Occult Blood-Urine Negative /ul (Negative); Protein-Dipstick Negative (Negative); Specific Gravity, Urine 1.005 (1.002-1.030); Urine Bilirubin Dipstick Negative (Negative); Urine Urobilinogen Normal (Normal)
[2022-05-24 16:07] LABS: Color, Urine Straw (Yellow); Urine Clarity Clear (Clear)
== END | disposition home or self-care (01) ==
LOC: LABSPEC 15:03
PROVIDERS: PCP Family Medicine; Visit Provider Physician Assistant
DX: N39.0 Urinary tract infection, site not specified (principal)
CPT/HCPCS: 81001; 87086

== ENCOUNTER → 2022-08-23 | Outpatient (REF) | payer OTHER, SELFPAY ==
--- NOTE | 2022-08-23 12:59 | RAD_ITS ---
EXAM: XR CHEST, 2 VIEWS CLINICAL INDICATION: encounter for physical TECHNIQUE: Frontal and lateral views of the chest. This report was created using SHIFT report generation technology. COMPARISON: 10/12/2020 FINDINGS: LUNGS AND PLEURAL SPACES: Unremarkable. No consolidation or edema. No pneumothorax. No effusion. HEART: Unremarkable. Cardiac silhouette not enlarged. MEDIASTINUM: Central airways and mediastinal contour are unremarkable. BONES/JOINTS: Unremarkable. SOFT TISSUES: Unremarkable. RAD/Chest PA and Lateral IMPRESSION: No radiographic evidence of acute cardiopulmonary disease. Electronically Signed: Wyatt Mayorga MD at 18:03 EDT ,
[2022-08-23 13:51] LABS: Cholesterol 126 mg/dL (200); High Density Lipoprotein 46 mg/dL; Triglycerides 101 mg/dL; Very Low Density Lipoprotein 20 mg/dL (5-40)
--- NOTE | 2022-08-24 11:50 | STRESSREP_ITS ---
Stress Test Report Date: 08/23/2022 Procedure: Exercise tolerance test Indications: Preemployment Consent: Per the patient Procedure: The patient exercised on a Josue protocol for 11 minutes and 1 second achieving a peak heart rate of 171 bpm (92% predicted maximal heart rate) with a peak blood pressure 122/76 mmHg and a peak MET capacity of approximately 13.7 MET's. The baseline ECG demonstrated normal sinus rhythm. The peak exercise ECG demonstrated no significant ischemic changes. [There were no cardiac dysrhythmias pretest, during exercise, or recovery]. The functional capacity was considered normal for age. The patient had no complaint of chest discomfort during exercise or recovery. The examination was discontinued secondary to achieving target heart rate. Impression: 1. Technically adequate (percent predicted maximal heart rate greater than 85%) exercise tolerance test 2. Stress test is negative for exercise-induced chest pain. 3. Stress test test negative for exercise-induced EKG changes of ischemia. 4. Functional capacity is normal for age This note was generated with [employer] software. It may contain incorrect words, spelling, and punctuation that were not noted in checking the note before signing.
== END ==
LOC: CVS 12:12
PROVIDERS: PCP Family Medicine; Visit Provider Physician Assistant
DX: Z02.89 Encounter for other administrative examinations (principal)
CPT/HCPCS: 36415; 71046; 80061; 93017

== ENCOUNTER → 2025-03-18 | Outpatient (CLI) | payer OTHER, SELFPAY ==
[2025-03-18 10:31] LABS: Absolute Lymphocyte Count 1.49 X10^3/uL (0.83-4.51); Absolute Neutrophil Count 3.3 X10^3/uL (2.0-7.7); Basophil# 0.08 X10^3/uL; Basophil% 1.4 % (0-1); Eosinophil# 0.46 X10^3/uL; Eosinophils% 7.9 % (0-5); Hematocrit 46.6 % (40-54); Hemoglobin 15.4 g/dL (13.0-16.5); Lymphocyte # 1.49 X10^3/ul (0.83-4.51); Lymphocyte % 25.7 % (19-41); Mean Corpuscular Hgb 28.4 pg (27.0-32.0); Mean Platelet Vol. 9.4 fl (6.2-12.0); Monocyte% 6.9 % (0-10); NRBC Flagged by Analyzer 0 % (0-5); Neutrophil # 3.34 X10^3/uL (2.7-7.7); Neutrophil % 57.8 % (47-70); Platelet Count 307 K/mm3 (150-450); RBC Distribution Width CV 12.7 % (11.6-14.6); RBC Distribution Width SD 39.4 fl (35.1-43.9); Red Blood Count 5.42 M/mm3 (4.6-6.2); White Blood Count 5.8 K/mm3 (4.4-11.0)
[2025-03-18 11:06] LABS: Microalbumin,Random Urine < 12.0 mg/L (NO RANGE EST.)
[2025-03-18 11:36] LABS: Hemoglobin A1c 9.1 % (<=5.6)
[2025-03-18 12:00] LABS: ALB/GLOB Ratio 1.6 RATIO (0.9-2.4); AST(SGOT) 17 U/L (<=37); Alanine Aminotransfer ALT/SGPT 14 U/L (<=46); Albumin, Serum 4.5 g/dL (3.5-5.0); Alkaline Phosphatase 101 U/L (40-129); Anion Gap 9 (5-15); BUN 12 mg/dL (4-19); BUN/Creat Ratio 13.6 RATIO (10-20); Calcium,Total 9.2 mg/dL (7.6-11.0); Carbon Dioxide 26.6 mmol/L (21.0-32.0); Chloride 104 mmol/L (98-108); Cholesterol 158 mg/dL (<=200); Creatinine, Serum 0.86 mg/dL (0.70-1.20); EST Glomerular Filtration Rate 114 (>60); Globulin 2.8 g/dL (2.2-4.2); Glucose 146 mg/dL (70-99); High Density Lipoprotein 36 mg/dL; Low Density Lipoprotein Calc. 106 mg/dL; Potassium 4.8 mmol/L (3.3-5.1); Protein, Total 7.3 g/dL (5.9-8.4); Sodium Level 140 mmol/L (133-145); Total Bilirubin 0.49 mg/dL (0.00-1.30); Triglycerides 79 mg/dL; Very Low Density Lipoprotein 16 mg/dL (5-40); Vitamin D,25 Hydroxy 30.3 ng/mL (30-100); cholesterol:hdl ratio screen 4.35
== END | disposition home or self-care (01) ==
PROVIDERS: PCP Family Medicine; Referring Provider Family Medicine; Visit Provider Family Medicine
DX: Z00.00 Encounter for general adult medical examination without abnormal findings (principal); E10.21 Type 1 diabetes mellitus with diabetic nephropathy; E55.9 Vitamin D deficiency, unspecified
CPT/HCPCS: 36415; 80053; 80061; 82043; 82306; 83036; 84443; 85025

== ENCOUNTER → 2025-07-13 | Outpatient (CLI) | payer OTHER, SELFPAY ==
[2025-07-13 10:04] LABS: Hematocrit 41.1 % (40-54); Hemoglobin 13.7 g/dL (13.0-16.5); Immature Granulocytes Count 0.020 X10^3/uL (0.0-0.0); Mean Corp Hgb Conc 33.3 g/dL (32-36); Mean Corpuscular Volume 88.2 fL (80-94); Mean Platelet Vol. 9.2 fl (6.2-12.0); NRBC Flagged by Analyzer 0 % (0-5); Platelet Count 320 K/mm3 (150-450); RBC Distribution Width CV 13.0 % (11.6-14.6); RBC Distribution Width SD 42.0 fl (35.1-43.9); Red Blood Count 4.66 M/mm3 (4.6-6.2); White Blood Count 5.8 K/mm3 (4.4-11.0)
[2025-07-13 10:26] LABS: Creatinine, Urine (random) 180.00 mg/dL (39.00-259.00); Microalbumin,Random Urine < 12.0 mg/L (<20 mg/L)
[2025-07-13 11:31] LABS: AST(SGOT) 17 U/L (<=37); Alanine Aminotransfer ALT/SGPT 14 U/L (<=46); Albumin, Serum 4.4 g/dL (3.5-5.0); Alkaline Phosphatase 100 U/L (40-129); Anion Gap 12 (5-15); BUN 13 mg/dL (4-19); BUN/Creat Ratio 17.0 RATIO (10-20); Calcium,Total 9.1 mg/dL (7.6-11.0); Carbon Dioxide 25.0 mmol/L (21.0-32.0); Chloride 104 mmol/L (98-108); Cholesterol 133 mg/dL (<=200); Globulin 2.6 g/dL (2.2-4.2); Glucose 161 mg/dL (70-99); Low Density Lipoprotein Calc. 75 mg/dL; Potassium 4.1 mmol/L (3.3-5.1); Triglycerides 64 mg/dL; Very Low Density Lipoprotein 13 mg/dL (5-40); Vitamin D,25 Hydroxy 30.0 ng/mL (30-100); cholesterol:hdl ratio screen 2.93
== END | disposition home or self-care (01) ==
LOC: LAB 09:28
PROVIDERS: PCP Family Medicine; Referring Provider Family Medicine; Visit Provider Family Medicine
DX: Z00.00 Encounter for general adult medical examination without abnormal findings (principal); E10.21 Type 1 diabetes mellitus with diabetic nephropathy; E55.9 Vitamin D deficiency, unspecified
CPT/HCPCS: 36415; 80053; 80061; 82043; 82306; 82570; 83036; 84443; 85025